=== PATIENT | female | born 1930 | race Caucasian/White ===

== ENCOUNTER → 2017-03-04 | Outpatient (CLI) | payer MEDICARE, BC ==
[~2017-03-04] MED LIST: BENA10TA48 PO; BENA20TA48 PO; CARV6.2579 PO; DOCU-144 PO; HYDR-3498 PO; LEVO75TA5 PO; SITA25TA3 PO; WARF1TAB47 PO
--- NOTE | 2017-03-04 16:10 | RADRPT ---
PROCEDURE: Right knee radiographs. CLINICAL INDICATION: Right knee pain. Postop. TECHNIQUE: Three views. Weight bearing. Frontal, lateral, and patellar view. COMPARISON: 03/19/2016. FINDINGS: There is no fracture or dislocation. 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 There is no lytic or blastic lesion. There is a small joint effusion, unchanged. IMPRESSION: 1. Small joint effusion, unchanged. 2. Postoperative changes of the right knee. RPTAT: QQ .Gianluca Lomas MD, MD Date Time Electronically viewed and signed by .Gianluca Lomas MD, MD on 03/04/2017 16:09 .R/
== END | disposition home or self-care (01) ==
LOC: HKI 08:52
PROVIDERS: ATTEND Orthopaedic Surgery
DX: M25.562 Pain in left knee (principal); M17.12 Unilateral primary osteoarthritis, left knee; Z96.651 Presence of right artificial knee joint